=== PATIENT | male | born 1935 | race Caucasian/White ===

== ENCOUNTER 2019-11-27 10:58 | Inpatient (IN) | payer MEDICARE ==
[~2019-11-27] VITALS: Ht 170.2 cm; Wt 71.3 kg
[2019-11-27 11:07] VITALS: BP 134/74
[2019-11-27] MEDS ORDERED: PROAIR HFA8.5 GM INH (11:12)
[2019-11-27] MEDS ORDERED: HYDROCHLOROTH12.5 M2 PO (11:12)
[2019-11-27] MEDS ORDERED: SYMBICORT80 MCG/4.1 INH (11:12)
[2019-11-27] MEDS ORDERED: PRAVASTATIN SOD20 MG PO (11:13)
[2019-11-27] MEDS ORDERED: POTASSIUM CHLO10 MEQ PO (11:13)
[2019-11-27 11:24] LABS: MCH 26.3 pg (26.0-34.0); MCHC 33.4 g/dL (28.0-37.0); MCV 78.8 fL (80.0-100.0); MPV 6.3 fl. (7.2-11.1); NUCLEATED RBCS 4 /100WBC; PLATELET COUNT* 69 thou/uL (150-400); RBC 2.04 mil/uL (4.50-6.00); WBC 6.9 thou/uL (4.0-11.0)
[2019-11-27 11:26] LABS: HEMATOCRIT 16.1 % (42.0-52.0); HEMOGLOBIN 5.4 gm/dL (14.0-18.0)
[2019-11-27 11:35] LABS: CALCIUM 8.9 mg/dL (8.5-10.1); CREATININE 1.3 mg/dL (0.6-1.3); POTASSIUM 3.7 mmol/L (3.5-5.1)
[2019-11-27 11:37] LABS: ALBUMIN 3.5 g/dL (3.4-5.0); TOTAL BILIRUBIN 1.3 mg/dL (<0.1-1.0); TOTAL PROTEIN 7.6 g/dL (6.4-8.2)
[2019-11-27 11:45] LABS: APTT 25.2 Seconds (25.0-31.3); INR 1.2; PROTIME 12.7 Seconds (9.20-11.50)
[2019-11-27 12:12] LABS: ABSOLUTE LYMPHOCYTES 2.3 thou/uL (0.8-5.3); ABSOLUTE MONOCYTES 0.4 thou/uL (0.0-1.2); ABSOLUTE NEUTROPHILS 4.2 thou/uL (1.6-8.1); MYELOCYTES 6 %; PLATELET ESTIMATE DECREASED
[2019-11-27 12:13] LABS: ANISOCYTOSIS 2+; HYPOCHROMASIA 2+; MICROCYTES 1+; OVALOCYTES 2+; POIKILOCYTOSIS 2+; POLYCHROMASIA 1+
--- NOTE | 2019-11-27 18:08 | NUR ---
PT PROVIDED MEAL TRAY FOR DINNER.
--- NOTE | 2019-11-27 19:03 | EKG ---
[place] [address] ELECTROCARDIOGRAM REPORT Name: DAWNNANCY Ospina Room: [place] [address] ADM IN [facility]#: [id number] Admission: 11/27/19 Attend Phys: Munira Cardenas, Discharge: Date of : 35 Date of Service: 11/27/19 1105 Report #: [id number] THIS REPORT FOR: //name// [facility] ED Test Date: 2019-11-27 Test Time: 11:05:50 Pat Name: NANCY SEYMOUR Department: Room: [facility] Gender: M Plate Conditioner: LACHELLE : 1935 Requested By: Kristin Campuzano Order Number: [id number] MD: Scot Sosa Measurements Intervals [place] Rate: 117 P: 63 WA: 134 QRS: -64 QRSD: 127 T: 73 QT: 309 QTc: 431 Interpretive Statements Sinus tachycardia Ventricular premature complex RBBB and LAFB ST elevation, consider lateral injury Baseline wander in lead(s) I,aVR,V2 No previous ECG available for comparison Electronically Signed On 11-27-2019 19:02:52 CDT by Scot Sosa [email or web address] <ELECTRONICALLY SIGNED> By: Scot Sosa MD, FACC 11/27/19 1902 1105 1105 Scot Sosa MD, FACC /EPI
[2019-11-27 20:59] LABS: MCHC 34.3 g/dL (28.0-37.0); MCV 81.5 fL (80.0-100.0); MPV 7.1 fl. (7.2-11.1); RBC 2.29 mil/uL (4.50-6.00); RDW-CV 20.8 % (10.5-14.5)
[2019-11-27 21:08] LABS: HEMOGLOBIN 6.4 gm/dL (14.0-18.0)
[2019-11-27 21:09] LABS: HEMATOCRIT 18.7 % (42.0-52.0)
[2019-11-27 22:15] VITALS: BP 106/54
[2019-11-27 23:00] VITALS: BP 118/61
[2019-11-27 23:30] VITALS: BP 100/51; BP 105/55; BP 113/60; BP 120/63
[2019-11-28 04:00] VITALS: BP 114/62
[2019-11-28 04:22] LABS: MCV 80.7 fL (80.0-100.0); RBC 2.44 mil/uL (4.50-6.00); WBC 3.5 thou/uL (4.0-11.0)
[2019-11-28 04:25] LABS: MCH 28.2 pg (26.0-34.0); MCHC 34.9 g/dL (28.0-37.0); MPV 8.5 fl. (7.2-11.1); RDW-CV 19.3 % (10.5-14.5)
[2019-11-28 04:42] LABS: ALBUMIN 2.8 g/dL (3.4-5.0); CALCIUM 8.3 mg/dL (8.5-10.1); CREATININE 0.9 mg/dL (0.6-1.3); MAGNESIUM 2.1 mg/dL (1.8-2.4); POTASSIUM 3.5 mmol/L (3.5-5.1); TOTAL BILIRUBIN 1.1 mg/dL (<0.1-1.0); TOTAL PROTEIN 6.1 g/dL (6.4-8.2)
--- NOTE | 2019-11-28 05:43 | NUR ---
RECIEVED REPORT FROM ED RN. PT TRANSFERRED TO 203. PT A&OX4. VSS. 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 ADMISSION HISTORY & PHYSICAL ASSESSMENT COMPLETED AND CHARTED. ORIENTED TO ROOM & CALL LIGHT. PT ON O2 AT 2L NC. PT TRACING SR/BBB ON TELE. PT DENIES ANY PAIN. PT HGB 6.4. TRANSFUSED 1 UNIT OF BLOOD PROPERLY TYPED AND CROSSMATCHED. NO BLOOD TRANSFUSION REACTION NOTED. FALL PRECAUTIONS IN PLACE. CALL LIGHT WITHIN REACH.
[2019-11-28 06:02] LABS: HEMOGLOBIN 6.9 gm/dL (14.0-18.0)
[2019-11-28 06:09] LABS: HEMATOCRIT 19.7 % (42.0-52.0)
[2019-11-28 09:36] VITALS: BP 121/62
[2019-11-28 09:57] VITALS: BP 101/77; BP 113/53
--- NOTE | 2019-11-28 11:09 | NUR ---
PTIS ALERT AND ORIENTED BUT VERY VIEJAS EVEN WITH ERNST'S 1U OF BLOOD TO BE GIVEN TODAY THUS FAR PT IS WEAK BOOD PRESSURE CAN GET LOW AT TIMES SR BBB ON MONITOR USES WALKER U/S OF ABD DONE THIS AM CALL LIGHT IN REACH DENIES PAIN NO CONCERNS
[2019-11-28 12:34] VITALS: BP 108/54
--- NOTE | 2019-11-28 13:42 | NUR ---
Pt was leaving room to have US, CM spoke with Pt's via phone. Per , Pt has been getting progressively weaker over the past year. Pt is A&O. Independent, assists as needed. completes IADLS, son has been doing their grocery shopping since covid. Pt has a rollator for in home and a different walker that he uses in the community. Pt continues to be able to manuever the stairs that they have in the home using the rail, they live in a tri level home and all of the restrooms are on the upper level, so Pt has to manuever multiple times/day. No hx of HH. Hx of skilled at [facility] post knee surgery. Pt may want to complete a DPOA during this hospital stay, CM to f/u. No home o2. Following.
[2019-11-28 14:20] LABS: HEMATOCRIT 23.8 % (42.0-52.0); HEMOGLOBIN 8.4 gm/dL (14.0-18.0)
[2019-11-28 16:42] VITALS: BP 98/59
[2019-11-29] VITALS: BP 99/52
[2019-11-29 04:00] VITALS: BP 127/64
[2019-11-29 05:03] LABS: HEMATOCRIT 22.9 % (42.0-52.0); HEMOGLOBIN 7.9 gm/dL (14.0-18.0); MCH 28.5 pg (26.0-34.0); MCHC 34.6 g/dL (28.0-37.0); MCV 82.4 fL (80.0-100.0); MPV 5.9 fl. (7.2-11.1); RBC 2.78 mil/uL (4.50-6.00); RDW-CV 18.4 % (10.5-14.5); WBC 3.5 thou/uL (4.0-11.0)
[2019-11-29 05:34] LABS: ALBUMIN 2.7 g/dL (3.4-5.0); CALCIUM 8.2 mg/dL (8.5-10.1); CREATININE 1.1 mg/dL (0.6-1.3); MAGNESIUM 2.2 mg/dL (1.8-2.4); POTASSIUM 3.6 mmol/L (3.5-5.1); TOTAL BILIRUBIN 0.9 mg/dL (<0.1-1.0); TOTAL PROTEIN 5.9 g/dL (6.4-8.2)
--- NOTE | 2019-11-29 06:13 | NUR ---
A+OX4. PT DENIED PAIN. RESTING THROUGH THE NIGHT. CALL LIGHT IN REACH. HOURLY ROUNDING FOR SAFETY.
[2019-11-29 08:00] VITALS: BP 113/56
[2019-11-29 08:07] LABS: HEMOGLOBIN 5.2 g/dL (13.0-17.7)
[2019-11-29 12:55] VITALS: BP 140/85
[2019-11-29 13:12] LABS: HEMOGLOBIN 6.2 g/dL (13.0-17.7)
--- NOTE | 2019-11-29 14:59 | NUR ---
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 Dr Gómez initiated the transfer, ROYAL spoke with the transfer team, Pt will be admitted under the care of Dr Sallie Arambula, awaiting room assignment and nurse report number. EMTALA and ambulance form initiated, to be completed once above info is received. and Pt aware of transfer. ROYAL faxed referral and images uploaded to the cloud. Tranfer p:[phone] f:[phone]
[2019-11-29 16:34] VITALS: BP 118/75
--- NOTE | 2019-11-29 19:19 | NUR ---
pt. aox4, denies pain, vss, sr on monitor. call light and personal belongings placed within reach. spouse visited in the afternoon. transfer orders received. report given to Evelyn Mantilla RN. pt left via ambulance by stretcher. pt in stable condition at time of leaving around 1814.
== END 2019-11-29 21:36 | disposition short-term general hospital (02) | DRG 835 ==
LOC: M.TBA-ER 18:08 → M.2W 18:08
PROVIDERS: Personal Emergency Response Attendant; ADMIT Internal Medicine; ATTEND Internal Medicine
PROC: 30233N1 Transfusion of Nonautologous Red Blood Cells into Peripheral Vein, Percutaneous Approach (ICD-10-PCS; principal; 2019-11-27)
DX: C95.00 Acute leukemia of unspecified cell type not having achieved remission (principal); D61.818 Other pancytopenia; E44.1 Mild protein-calorie malnutrition; I10 Essential (primary) hypertension; J44.9 Chronic obstructive pulmonary disease, unspecified; K76.89 Other specified diseases of liver; D64.89 Other specified anemias; Z03.818 Encounter for observation for suspected exposure to other biological agents ruled out; Z87.891 Personal history of nicotine dependence; Z68.24 Body mass index [BMI] 24.0-24.9, adult